=== PATIENT | female | born 1980 | race Caucasian/White ===

== ENCOUNTER 2017-05-02 06:37 | Day surgery (SDC) | payer OTHER ==
[2017-05-02] MEDS ORDERED: MORPHINE 2 MG/ML SYRINGE IVP STA (06:49)
[2017-05-02] MEDS ORDERED: ONDANSETRON 4 MG/2 ML VIAL IVP STA (06:49)
[2017-05-02] MEDS ORDERED: SODIUM CHLORIDE 0.9% 1,000 ML IV ONE (06:49)
[2017-05-02] MEDS ORDERED: ONDANSETRON 4 MG/2 ML VIAL ONE (07:20)
[2017-05-02] MEDS ORDERED: MORPHINE 2 MG/ML SYRINGE ONE (07:20)
[2017-05-02 07:23] LABS: BILIRUBIN,URINE NEGATIVE (NEGATIVE); PH,URINE 6.5 PH (5.0-7.5)
[2017-05-02 07:25] LABS: UA CHARGE (STRIP ONLY) YES; UR CULTURE IF IND NOT INDICATED
[2017-05-02 07:26] LABS: HCG UR QUAL NEGATIVE
[2017-05-02] MEDS ORDERED: ACETAMINOPHEN 1,000 MG/100 ML 100 ML IV STA (08:10)
--- NOTE | 2017-05-02 08:12 | ED Physician Documentation ---
History of Present Illness - Stated complaint Stated Complaint: NAUSEA/R SIDE PX - Chief complaint Chief Complaint: Abd Pain - Additonal information Additional information: hx from pt 36 y/o f denies preg no prior abd surgery known gallstones scheduled for elective surgery at [facility] Dr Sen onset ruq pain 1 AM, still presen, NV since 5 AM, no fever Review of Systems Constitutional: denies: Fever Cardiac: denies: Chest pain / pressure Respiratory: denies: Dyspnea, Cough GI: reports: Abdominal Pain, Nausea, Vomiting : denies: Now EGA (denies) Musculoskeletal: denies: Back pain Endocrine: denies: Easy bruising / bleeding Immunocompromised: denies: Immunocompromised PD PAST MEDICAL HISTORY - Past Medical History HEENT: Other Psych: Depression Other Past Medical History: gallbladder issue - Past Surgical History HEENT: Tonsil/Adenoidectomy - Present Medications Home Medications: Ambulatory Orders Medication Instructions Recorded Confirmed Venlafaxine [Effexor] 75 mg ORAL DAILY 05/02/17 05/02/17 - Allergies Allergies/Adverse Reactions: Allergies Allergy/AdvReac Type Severity Reaction Status Date / Time No Known Drug Allergies Allergy Verified 02/18/15 08:08 - Social History Does the pt smoke?: No Smoking Status: Never smoker Does the pt drink ETOH?: No Does the pt have substance abuse?: No - Immunizations Immunizations are current?: Yes - POLST Patient has POLST: No PD ED PE NORMAL - Vitals Vital signs reviewed: Yes - General General: Alert and oriented X 3 - HEENT HEENT: PERRL - Neck Neck: Supple, no meningeal sign - Cardiac Cardiac: RRR - Respiratory Respiratory: No respiratory distress, Clear bilaterally - Abdomen Abdomen: Soft, Other (ruq TTP + murphys) - Derm Derm: Normal color - Extremities Extremities: No deformity - Neuro Neuro: Alert and oriented X 3 Results - Vitals Vitals: Vital Signs - 24 hr 05/02/17 06:43 Temperature 37 C Heart Rate 90 Respiratory 20 Rate Blood Pressure 128/69 O2 Saturation 100 Oxygen O2 Source Room air - Labs Labs: Laboratory Tests 05/02/17 05/02/17 05/02/17 07:15 07:15 08:00 WBC 11.1 H RBC 4.66 Hgb 12.4 Hct 37.6 MCV 80.6 L MCH 26.6 L MCHC 33.0 RDW 14.0 Plt Count 301 MPV 7.9 Neut # 8.0 H Lymph # 2.1 Kings # 0.7 Eos # 0.2 Baso # 0.1 Absolute Nucleated RBC 0.00 Nucleated RBCs 0.0 Sodium Potassium Chloride Carbon Dioxide Anion Gap BUN Creatinine Estimated GFR (MDRD) Glucose Calcium Total Bilirubin AST ALT Alkaline Phosphatase Total Protein Albumin Globulin Albumin/Globulin Ratio Lipase Urine Color YELLOW Urine Clarity CLEAR Urine pH 6.5 Ur Specific [place] 1.010 1.010 Urine Protein NEGATIVE Urine Glucose (UA) NEGATIVE Urine Ketones NEGATIVE Urine Occult Blood NEGATIVE Urine Nitrite NEGATIVE Urine Bilirubin NEGATIVE Urine Urobilinogen 0.2 (NORMAL) Ur Leukocyte Esterase NEGATIVE Ur Microscopic Review NOT INDICATED Urine Culture Comments NOT INDICATED Urine HCG, Qual NEGATIVE 05/02/17 08:00 WBC RBC Hgb Hct MCV MCH MCHC RDW Plt Count MPV Neut # Lymph # Kings # Eos # Baso # Absolute Nucleated RBC Nucleated RBCs Sodium 140 Potassium 3.9 Chloride 104 Carbon Dioxide 26 Anion Gap 10.0 BUN 12 Creatinine 0.7 Estimated GFR (MDRD) 95 Glucose 123 H Calcium 9.6 Total Bilirubin 0.4 AST 18 ALT 14 Alkaline Phosphatase 67 Total Protein 8.1 Albumin 4.9 Globulin 3.2 Albumin/Globulin Ratio 1.5 Lipase 31 Urine Color Urine Clarity Urine pH Ur Specific [place] Urine Protein Urine Glucose (UA) Urine Ketones Urine Occult Blood Urine Nitrite Urine Bilirubin Urine Urobilinogen Ur Leukocyte Esterase Ur Microscopic Review Urine Culture Comments Urine HCG, Qual - Rads (name of study) ruq sono Radiology: See rad report (acute manjula) PD MEDICAL DECISION MAKING - ED course ED course: acute manjula seen by Dr Ike schaeffer early childhood education specialist to OR Departure - Departure Disposition: ED Transfer to [facility]
[2017-05-02 08:17] LABS: BASOPHILS # (AUTO) 0.1 10^3/uL (0.0-0.1); BASOPHILS % (AUTO) 0.7 %; EOSINOPHILS # (AUTO) 0.2 10^3/uL (0.0-0.7); EOSINOPHILS % (AUTO) 1.9 %; HCT - HEMATOCRIT 37.6 % (37.0-47.0); HGB - HEMOGLOBIN 12.4 g/dL (12.0-16.0); LYMPHOCYTES # (AUTO) 2.1 10^3/uL (1.5-3.5); MEAN CORPUSCULAR HEMOGLOBIN 26.6 pg (27.0-31.0); MEAN CORPUSCULAR VOLUME 80.6 fL (81.0-99.0); MEAN PLATELET VOLUME 7.9 fL (7.9-10.8); MONOCYTES # (AUTO) 0.7 10^3/uL (0.0-1.0); MONOCYTES % (AUTO) 6.6 %; NEUTROPHILS % (AUTO) 71.8 %; RED BLOOD COUNT 4.66 10^6/uL (4.20-5.40); UNCORRECTED WHITE BLOOD COUNT 11.1 x10^3/uL; WHITE BLOOD COUNT 11.1 x10^3/uL (4.8-10.8)
--- NOTE | 2017-05-02 08:20 | Ultrasound Preliminary Report ---
Exam: US Abdomen Limited IMPRESSION: 1. Findings consistent with acute cholecystitis. 2. Hepatomegaly with no focal lesions. [facility] SITE ID: [id number]
--- NOTE | 2017-05-02 08:22 | Ultrasound Report ---
EXAM: ABDOMEN ULTRASOUND LIMITED, RUQ EXAM DATE: 05/02/2017 08:01 AM. CLINICAL HISTORY: Ruq pain, hx of gallstones. COMPARISON: None. TECHNIQUE: Real-time scanning was performed with static images obtained. FINDINGS: Liver: The liver is enlarged. The echotexture is within normal limits. 17.0 cm. Main portal vein flow : Hepatopetal. Gallbladder: Multiple mobile stones in the gallbladder sludge. The gallbladder wall is upper limits o f normal in thickness measuring 3 mm. Positive sonographic Lal sign elicited during the examinatio n. Biliary System: CBD measures 2.7 mm. No intrahepatic or extrahepatic ductal dilatation. Other: No hydronephrosis or renal calculus in the right kidney. The right kidney measures up to 9.7 c m in length. IMPRESSION: 1. Findings consistent with acute cholecystitis. 2. Hepatomegaly with no focal lesions. [facility] Referring Provider Line: [phone] SITE ID: [id number]
[2017-05-02] MEDS ORDERED: ACETAMINOPHEN 1,000 MG/100 ML 100 ML IV ONE (08:23)
[2017-05-02 08:30] LABS: ALBUMIN/GLOBULIN RATIO 1.5 (1.0-2.2); BILIRUBIN,TOTAL 0.4 mg/dL (0.2-1.0); CALCIUM 9.6 mg/dL (8.5-10.3); CREATININE 0.7 mg/dL (0.4-1.0); POTASSIUM 3.9 mmol/L (3.5-5.0); TOTAL PROTEIN 8.1 g/dL (6.7-8.2)
[2017-05-02] MEDS ORDERED: PIPERACILLIN/TAZOBACTAM 3.375 GM in SODIUM CHLORIDE 0.9% MINIBAG 100 ML IV STA (08:44)
[2017-05-02] MEDS ORDERED: LIDOCAINE-MPF 2% 5 ML VIAL IM ONE (10:15)
[2017-05-02] MEDS ORDERED: PROPOFOL 200 MG/20 ML VIAL IVP ONE (10:15)
[2017-05-02] MEDS ORDERED: fentaNYL 100 MCG/2 ML VIAL IVP ONE (10:15)
[2017-05-02] MEDS ORDERED: NEOSTIGMINE 1 MG/1 ML 10 ML MDV IVP ONE (10:15)
[2017-05-02] MEDS ORDERED: ONDANSETRON 4 MG/2 ML VIAL IVP ONE (10:15)
[2017-05-02] MEDS ORDERED: KETOROLAC 30 MG/ML VIAL IVP ONE (10:15)
[2017-05-02] MEDS ORDERED: MIDAZOLAM 2 MG/2 ML VIAL IVP ONE (10:15)
[2017-05-02] MEDS ORDERED: SUCCINYLCHOLINE 200 MG/10 ML VIAL IVP ONE (10:15)
[2017-05-02] MEDS ORDERED: DEXAMETHASONE 4 MG/ML VIAL IVP ONE (10:15)
[2017-05-02] MEDS ORDERED: GLYCOPYRROLATE 1 MG/5 ML VIAL IVP ONE (10:15)
[2017-05-02] MEDS ORDERED: ROCURONIUM 50 MG/5 ML VIAL IVP ONE (10:15)
[2017-05-02] MEDS ORDERED: BUPIVACAINE 0.5% PF 30 ML VIAL INFIL ONE (10:36)
[2017-05-02] MEDS ORDERED: LACTATED RINGERS 1,000 ML IV ONE ×2 (10:37→11:32)
[2017-05-02] MEDS ORDERED: OXYMETAZOLINE NASAL SPRAY NAS ONE (11:34)
[2017-05-02] MEDS: fentaNYL 100 MCG/2 ML VIAL ONE ×2 (11:47→11:55)
[2017-05-02] MEDS ORDERED: oxyCOD/ACETAMIN 5 MG/325 MG TABLET PO ONE ×2 (12:08→13:10)
[2017-05-02] MEDS: HYDROmorphone 1 MG/ML SYRINGE ONE ×2 (12:37→13:13)
[2017-05-02 13:44] VITALS: BP 134/82
--- NOTE | 2017-05-02 19:54 | HISTORY & PHYSICAL EXAMINATION ---
DATE OF ADMISSION: 05/02/2017 HISTORY OF PRESENT ILLNESS: This exceedingly pleasant 36-year-old female was scheduled to have her ga llbladder removed by Dr. Sen on the of this month for symptomatic cholelithiasis when her s ymptoms returned and persisted to the point where she came to the emergency department at [facility]. I evaluated her in room 8 of [facility]'s Emergency Department and her signs and symptoms of right upper quadrant pain accompanied by nausea and vomiting were cons istent with cholelithiasis. The patient and her were amenable to her having her gallbladder t aken out today. ALLERGIES: NONE. MEDICATIONS: Effexor 75 mg tablet daily. PAST MEDICAL AND SURGICAL HISTORY 1. Depression. 2. Tonsillectomy and adenoidectomy. SOCIAL HISTORY Tobacco: None. Alcohol: None. Recreational drug use: None. FAMILY HISTORY: Noncontributory for this disease process. REVIEW OF SYSTEMS CONSTITUTIONAL: She denies any fever. She has had weight loss while waiting for her gallbladder to be removed. HEENT: She has no change (improvement or decrease) in her vision or hearing. NECK: Shows no difficulty swallowing or speaking. CARDIAC: She denies chest pain or pressure. RESPIRATORY: She denies shortness breath or productive cough. GASTROINTESTINAL: See above. GENITOURINARY: She denies dysuria. MUSCULOSKELETAL: She denies back or joint pain. ENDOCRINE: She denies easy bleeding or bruising. IMMUNOLOGIC: She denies anything that would compromise her immune system. PHYSICAL EXAMINATION GENERAL: This is a 36-year-old female evaluated in bed 8 at [facility]'s Emergency Department. She appears quite healthy, but in mild distress due to right upper quadrant pain. VITAL SIGNS: Please refer to the nurse's notes. HENT: She is normocephalic, atraumatic. Sclerae not injected, anicteric. Mucous membranes are pink an d moist. NECK: Supple without mass or bruits. HEART: Regular rate and rhythm without rub, murmur, or gallop. LUNGS: Clear to auscultation bilaterally. ABDOMEN: Tender in the right upper quadrant. There are no peritoneal findings. There are normoactive bowel sounds. There is no palpable hepatosplenomegaly. She has previous piercing in her umbilicus and no palpable hernia. RECTAL: Deferred. GENITOURINARY: Deferred. EXTREMITIES: Show no clubbing, cyanosis, or edema. GAIT: Not evaluated. NEUROLOGIC: She is alert and oriented to person, place, and time. She asks and answers questions well . There is no focal deficit. Her mood and affect appear appropriate. The abdominal ultrasound report says that the liver is enlarged and the gallbladder shows multiple mo bile stones and gallbladder sludge. Gallbladder wall is in the upper limits of normal with thickness measured 3 mm. There is positive sonographic Lal sign elicited during examination. Common bile louis t measures 2.7 mm with no dilatation. ASSESSMENT: A 36-year-old female with acute cholecystitis. PLAN: Laparoscopic cholecystectomy, possible open cholecystectomy, possible intraoperative cholangiog cy, possible common bile duct exploration. The indications, procedure, alternatives, and possible co mplications, including but not limited to, infection, bleeding with all of its risks including transf usion, common bile duct injury, and were fully explained to the patient and her . All qu estions were answered. Verbal and written consent was obtained. The patient, in preparation for the s urgery will be maintained n.p.o., and she will have TEDs and Venodynes placed for prophylaxis against deep venous thrombosis. In addition, she will receive preoperative antibiotics for prophylaxis again st surgical infection. Asked her to let us know if there is any way we can make her stay here at [facility] more comfortable, to please let us know, and she stated that she would. JOB #: [id number] EXT JOB #:[id number]
--- NOTE | 2017-05-02 20:06 | OPERATIVE REPORT ---
DATE OF SURGERY: 05/02/2017 00:00:00 TIME: 11:25 PREOPERATIVE DIAGNOSIS: Acute cholecystitis. POSTOPERATIVE DIAGNOSIS: acute cholecystitis. NAME OF PROCEDURE: Laparoscopic cholecystectomy and umbilical herniorrhaphy. SURGEON: Yoseph Ramires MD ANESTHESIA: Dutch (general endotracheal) plus 30 mL of 0.5% Marcaine. COMPLICATIONS: There were none. ESTIMATED BLOOD LOSS: Less than 5 mL. FLUIDS: 1200 mL of crystalloid. SPECIMEN REMOVED: Gallbladder and contents. DETAILS OF PROCEDURE: After informed consent was obtained detailing the risks of infection, bleeding with all its risks, common bile duct exploration, common bile duct injury, and , the patient was brought to the operative suite and placed supine on the operating room table. The patient received p reoperative antibiotics for prophylaxis against surgical infection. The patient had TEDs and Venodyne s placed for prophylaxis against deep venous thrombosis. General endotracheal anesthesia was induced by Denilson Judd and Denilson provided anesthesia care for the entirety of the case. With the patient ad equately anesthetized, the patient was prepped and draped in the usual standard manner. At this point , a time-in was done that confirmed the patient's identity via 3 separate identifiers including her n emmett, her medical record number, and her date. In addition, we confirmed the procedure being per formed, confirming that history and physical was present in the chart, and confirmed that a consent f or the aforementioned procedure was available in the chart, confirmed the patient's medications, conf irmed the patient's allergies, and confirmed that we had the personnel and equipment required to perf orm the proposed procedure. With the agreement of everyone in the room, the operation was allowed to proceed. An umbilical incision was made at the base of the umbilicus to minimize the postoperative sc ar. Dissection was carried down to the linea alba using Bovie electrocautery as well as a scalpel. Up on dissecting down into this area, an umbilical hernia was noted. Through this opening was placed a 1 2 mm blunt-tipped, balloon-tipped cannula and the abdomen was insufflated to a steady state pressure of 15 mmHg with carbon dioxide. Three 5 mm ports were then placed, one in the subxiphoid position, an d 2 in the subcostal position, one at the midclavicular line, and one in the anterior axillary line; all 3 under direct vision and without incident. The gallbladder was noted to be somewhat thick-walled and had numerous adhesions to it. These adhesions were taken down using traction and countertraction . The duodenum itself was even adherent to it. This was taken down without injury. The gallbladder wa s then grasped and retracted superiorly and laterally to allow for dissection of the cystic duct. The dissection was done primarily with a [place]. Some serosal overlap was cauterized using Bovie elect rocautery to allow for placement of a [place]. In so doing, the cystic duct and cystic artery were c learly identified and the critical view was obtained and photographed. The cystic duct was doubly cli pped proximally and distally and transected using scissors. The cystic artery was similarly doubly cl ipped proximally and distally and transected. The gallbladder was then removed from the liver bed usi ng serial application of Bovie electrocautery. The photograph was taken of the liver bed showing no b ile leak and no bleeding. The gallbladder was then placed in an Endopouch that had been placed throug h the umbilical port site. All port sites were then injected using 0.5% Marcaine under direct vision at the peritoneal, fascial, and skin level. Insufflation was released and ports were removed, and the gallbladder was removed from the abdomen via the umbilical site. The fascia at the umbilicus was fuentes sed using a 0 Vicryl [id number] stitch. Two sutures were used to close the umbilicus. The skin a t all 4 sites was approximated using 4-0 Monocryl in a running subcuticular fashion. Please note that by closing the fascia at the umbilicus, the umbilical hernia was repaired. The patient was subsequen tly extubated and taken to recovery room in good and stable condition having tolerated this procedure well. JOB #: [id number] EXT JOB #:[id number]
== END 2017-05-02 08:52 | disposition home or self-care (01) ==
LOC: ED 06:37 → SDS 08:51
PROVIDERS: ATTEND Surgery
PROC: 0FT44ZZ Resection of Gallbladder, Percutaneous Endoscopic Approach (ICD-10-PCS; principal; 2017-05-02 09:43)
DX: K80.00 Calculus of gallbladder with acute cholecystitis without obstruction (principal); K42.9 Umbilical hernia without obstruction or gangrene; R16.0 Hepatomegaly, not elsewhere classified
CPT/HCPCS: 36415; 47562; 76705; 80053; 81003; 81025; 83690; 85025; 96361; 96374; 96375; 99283; 99284; A9270; J0131; J1170; J7120; 81001; 87086; 88304

== ENCOUNTER 2017-06-07 16:29 | Emergency (ER) | payer OTHER ==
--- NOTE | 2017-06-07 18:24 | ED Physician Documentation ---
PD HPI ABD PAIN - Stated complaint Stated Complaint: ABD PX/SWELLING - Chief complaint Chief Complaint: Abd Pain - History obtained from History obtained from: Patient - History of Present Illness Timing - onset: Other (She had a laparoscopic cholecystectomy with umbilical herniorrhaphy on May 02 of last month, over the last few days has had periumbilical pain with spreading redness away from the umbilicus, there is no generalized abdominal pain or fever, she has had some diarrhea since the surgery , but she is not constipated.) Review of Systems Constitutional: denies: Fever, Chills Respiratory: denies: Dyspnea, Cough GI: denies: Nausea, Vomiting, Constipation, Bloody / black stool PD PAST MEDICAL HISTORY - Past Medical History Past Medical History: No HEENT: Other Psych: Depression - Past Surgical History General: Cholecystectomy HEENT: Tonsil/Adenoidectomy - Present Medications Home Medications: Ambulatory Orders Medication Instructions Recorded Confirmed Cephalexin [Keflex] 500 mg PO QID #40 capsule 06/07/17 - Allergies Allergies/Adverse Reactions: Allergies Allergy/AdvReac Type Severity Reaction Status Date / Time No Known Drug Allergies Allergy Verified 02/18/15 08:08 - Social History Does the pt smoke?: No Smoking Status: Never smoker Does the pt drink ETOH?: No Does the pt have substance abuse?: No - Immunizations Immunizations are current?: Yes - POLST Patient has POLST: No PD ED PE NORMAL - Vitals Vital signs reviewed: Yes - General General: Alert and oriented X 3, No acute distress - Abdomen Abdomen: Other (Focal tenderness of the umbilicus with surrounding cellulitis, on ultrasound there does appear to be a subcutaneous abscess superior to the umbilicus. There is no diffuse abdominal tenderness.) - Back Back: No CVA TTP, No spinal TTP - Neuro Neuro: Alert and oriented X 3, Normal speech Results - Vitals Vitals: Vital Signs - 24 hr 06/07/17 06/07/17 16:34 18:13 Temperature 36.7 C 36.7 C Heart Rate 104 H 84 Respiratory 16 17 Rate Blood Pressure 138/94 H 128/73 O2 Saturation 99 99 Oxygen O2 Source Room air PD MEDICAL DECISION MAKING - ED course ED course: 37-year-old woman with periumbilical cellulitis well over a month after cholecystectomy with herniorrhaphy. I thought she probably had a little subcutaneous abscess in the area was prepped and draped and locally infiltrated with lidocaine and a small incision was made but I did not find any pus. The incision was closed with 2 5-0 nylon sutures.Advised that she should follow-up with her surgeon for recheck in 2-3 days and return if worse. Departure - Departure Disposition: 01 Home, Self Care Clinical Impression: Abdominal wall cellulitis Condition: Good Record reviewed to determine appropriate education?: Yes Instructions: Cellulitis Dc Follow-Up: Yoseph Ramires MD [Provider Admit Priv/Credential] - Prescriptions: Cephalexin [Keflex] 500 mg PO QID #40 capsule Comments: Call Dr. Ramires's office tomorrow for follow-up in 2-3 days. Return if worse. Especially if you run a fever or develop diffuse abdominal pain. Sutures come out in 7-10 days as discussed.
[2017-06-07] MEDS ORDERED: CEPHALEXIN 250 MG Prepack 8 PO ONE ×2 (18:41→18:43)
[2017-06-07 19:11] VITALS: BP 122/60
== END 2017-06-07 19:10 | disposition home or self-care (01) ==
LOC: ED 16:29
DX: L03.311 Cellulitis of abdominal wall (principal); Z98.890 Other specified postprocedural states
CPT/HCPCS: 10060; 99283